=== PATIENT | female | born 1980 | race Caucasian/White ===

== ENCOUNTER 2017-05-10 09:07 | Emergency (ER) | payer OTHER ==
[~2017-05-10] VITALS: Ht 172.7 cm; Wt 97.1 kg
[~2017-05-10 09:07] MED LIST: LORA-741 PO; LSX20 PO; ONDA4TAB7 SL; POTA1CAP2 PO; ZOLP10TA PO
[2017-05-10 09:11] VITALS: TEMP 36.5; Ht 172.7 cm; Wt 97.1 kg
[2017-05-10] MEDS ORDERED: HYDROmorphone INJ 1 MG/ML SYR IV STA (09:52)
[2017-05-10] MEDS ORDERED: SODIUM CHLORIDE 0.9% 1000ML 1,000 ML IV STA (09:52)
[2017-05-10] MEDS ORDERED: ONDANSETRON INJ 2 MG/ML 2 ML VIAL IV STA ×2 (09:52→11:20)
[2017-05-10] MEDS ORDERED: OPTIRAY 320 IV PRN (10:00)
[2017-05-10 10:03] LABS: BASO % 0.3 %; BASO ABS # 0.02 K/uL (0-0.2); EOS % 1.2 %; EOS ABS # 0.09 K/uL (0-0.5); HEMATOCRIT 41.5 % (37-47); HEMOGLOBIN 14.7 g/dL (12.0-16.0); IG# 0.02 K/uL (0.00-0.02); LYMPH % 34.8 %; LYMPH ABS # 2.59 K/uL (1.2-3.4); MEAN CORPUSCULAR HEMOGLOBIN 32.6 pg (25-34); MEAN CORPUSCULAR HGB CONC 35.4 g/dl (32-36); MEAN PLATELET VOLUME 9.3 fL (7.4-10.4); MONO % 4.3 %; MONO ABS # 0.32 K/uL (0.11-0.59); NEUT % 59.1 %; PLATELET COUNT 301 K/uL (130-400); RED CELL DISTRIBUTION WIDTH CV 12.8 % (11.5-14.5); RED CELL DISTRIBUTION WIDTH SD 42.9 fL (36.4-46.3); WHITE BLOOD COUNT 7.44 K/uL (4.8-10.8)
--- NOTE | 2017-05-10 10:18 | DIAGNOSTIC IMAGING REPORT ---
CHEST ONE VIEW PORTABLE CLINICAL HISTORY: Pain, radiating to the abdomen. COMPARISON STUDY: 05/06/2015 FINDINGS: The cardiac and mediastinal contours are normal. There is no evidence of focal pulmonary consolidation. There is no evidence of failure. No pleural effusions are visualized.[ There is no free intraperitoneal air. IMPRESSION: No active disease in the chest. Electronically signed by: Lg Corrales M.D. 05/10/2017 10:17 AM Dictated Date/Time: 05/10/2017 10:15 AM
[2017-05-10 10:34] LABS: ALBUMIN 4.1 gm/dl (3.4-5.0); CREATININE 0.87 mg/dl (0.60-1.20); POTASSIUM 3.5 mmol/L (3.5-5.1); TOTAL PROTEIN 8.2 gm/dl (6.4-8.2)
[2017-05-10] MEDS ORDERED: KETOROLAC TROMETHAMINE 30 MG/ML VIAL ONE (11:19)
[2017-05-10] MEDS ORDERED: KETOROLAC TROMETHAMINE 30 MG/ML VIAL IV STA (11:20)
[2017-05-10] MEDS ORDERED: HYDROCODONE/ACETAMI 10/325 TAB PO STA (11:20)
[2017-05-10 11:24] LABS: CALCIUM 9.6 mg/dl (8.5-10.1)
--- NOTE | 2017-05-10 11:24 | DIAGNOSTIC IMAGING REPORT ---
CT ABD/PELVIS IV CONTRAST ONLY CLINICAL HISTORY: Diffuse severe abdominal pain, TTP, L CVATTP, h/o kidney stones, prior appy COMPARISON STUDY: August 20, 2014 TECHNIQUE: Following the IV administration of 94 mL of Optiray-320, CT scan of the abdomen and pelvis was performed from the lung bases to the proximal femurs. Images are reviewed in the axial, sagittal, and coronal planes. IV contrast was administered without complication. A dose lowering technique was utilized adhering to the principles of ALARA. CT DOSE: 992.94 mGy.cm FINDINGS: Lower chest: The heart is normal in size and configuration, without pericardial effusion. The lung bases and pleural spaces are clear. Liver: The contrast-enhanced liver is normal in size, contour, and attenuation. There is no intrahepatic biliary ductal dilatation. The hepatic veins and portal veins are patent. Gallbladder: Unremarkable. Spleen: Normal in size and attenuation. Pancreas: Unremarkable. Adrenal glands: Unremarkable. Kidneys: There is a 2.5 mm obstructing left ureteral calculus at the level of the ureterovesical junction. There is secondary hydroureteronephrosis. No solid renal masses are visualized. There is a 3 mm lower pole right renal calculus. Bowel: There are no transition zone to indicate bowel obstruction. By history the appendix is surgically absent. There is no acute diverticulitis. Peritoneum: There is no intraperitoneal free air or abdominal ascites. Vasculature: The abdominal aorta is normal in course and caliber. Adenopathy: None. Pelvic viscera: The bladder, and pelvic viscera are unremarkable. Skeletal structures: No destructive osseous lesions are seen. IMPRESSION: 1. 2.5 mm left UVJ calculus with secondary obstructive changes 2. Nonobstructing lower pole right renal calculus 3. No evidence of bowel obstruction. No evidence of free air Electronically signed by: Lg Corrales M.D. 05/10/2017 11:23 AM Dictated Date/Time: 05/10/2017 11:18 AM
[2017-05-10] MEDS ORDERED: ONDA4TAB46 PO (11:44)
[2017-05-10] MEDS ORDERED: TAMS0.4C38 PO (11:44)
[2017-05-10] MEDS ORDERED: OXYC1TAB3 PO (11:44)
--- NOTE | 2017-05-10 11:45 | EMERGENCY ROOM VISIT NOTE ---
History Report prepared by Della: Ezequiel Negron Under the Supervision of: Dr. Alton Pettit M.D. First contact with patient: 09:37 Chief Complaint: KIDNEY STONE Stated Complaint: POSS KIDNEY STONE,VOMITING History of Present Illness The patient is a 37 year old white female with a past medical history of Kidney stone, GERD s/p Jayde Fundoplication, PCOS, s/p tonsillectomy, appendectomy s/ p appendix rupture, PE who presents to the ED with a cc of constant left flank pain beginning one hour ago. Positive vomiting. Patient reports pain feels similar to kidney stone, except previous kidney stone pain was intermittent. Describes pain as "sharp". Negative abdominal pain. No recent travel or antibiotic use. Patient reports experiencing "bladder spasms" the day following sexual intercourse. LNMP was three weeks ago Source of History: patient Onset: One hour ago Position: other (left flank) Quality: sharp Timing: constant Associated Symptoms: + vomiting, No abdominal pain Review of Systems See HPI for pertinent positives and negatives. A total of ten systems were reviewed and were otherwise negative. Past Medical & Surgical Medical Problems: (1) Colposcopy (2) GERD (gastroesophageal reflux disease) (3) Kidney stone (4) PERSONAL HISTORY OF CERVICAL DYSPLASIA (5) polycystic ovary syndrome (6) Pulmonary embolism Surgical Problems: (1) History of Jayde fundoplication (2) History of tonsillectomy Family History Cancer Diabetes mellitus FH: heart disease FHx: gallbladder disease FHx: lung disease Hypertension Kidney disease Kidney stones Social History Smoking Status: Former Smoker Alcohol Use: none Drug Use: none Marital Status: in relationship Housing Status: lives with family Occupation Status: employed Current/Historical Medications Scheduled Tamsulosin Hcl (Flomax), 0.4 MG PO DAILY Scheduled PRN Lorazepam (Ativan), 0.5 MG PO Q8H PRN for Anxiety/Agitation Ondansetron Hcl (Zofran), 4 MG PO Q8H PRN for Nausea Oxycodone Immediate Rel Tab (Roxicodone Ir), 5 MG PO Q6H PRN for Pain Zolpidem Tartrate (Ambien), 10 MG PO HS PRN for Sleep Allergies Coded Allergies: Fentanyl (Unverified Allergy, Severe, MAKES HER FEEL ILL, 05/10/17) Morphine (Unverified Allergy, Severe, MAKES HER FEEL ILL, 05/10/17) PT STATED DO NOT USE MORPHINE OR FENTANYL ON HER, USE ALTERNATIVE MEDS Povidone (Verified Allergy, Intermediate, SWELLING,RASH, 05/10/17) Povidone Iodine (Unverified Allergy, Intermediate, SWELLING, RASH, 05/10/17 ) IN AN OPEN SKIN/WOUND Clarithromycin (Verified Adverse Reaction, Mild, VOMITING, 05/10/17) Sulfa Drugs (Verified Adverse Reaction, Mild, VOMITING, 05/10/17) Sulfamethoxazole (Verified Adverse Reaction, Mild, VOMITING, 05/10/17) Trimethoprim (Verified Adverse Reaction, Mild, VOMITING, 05/10/17) Physical Exam Vital Signs Date Time Temp Pulse Resp B/P (MAP) Pulse Ox O2 Delivery O2 Flow Rate FiO2 05/10/17 11:54 70 16 98/66 98 Room Air 05/10/17 10:52 53 20 111/66 100 Room Air 05/10/17 09:11 36.5 76 20 153/86 100 Room Air Physical Exam GENERAL: Awake, alert, well-appearing, in moderate distress. Appears to be in pain. HENT: Normocephalic, atraumatic. EYES: Normal conjunctiva. Sclera non-icteric. NECK: Supple. No nuchal rigidity. FROM. RESPIRATORY: CTAB, no rhonchi, wheezing, crackles CARDIAC: RRR, no MRG ABDOMEN: Soft, BS+. Diffuse abdominal TTP. Left sided CVA TTP. MSK: No chest wall TTP, no LE edema NEURO: GCS 15, CN 2-12 intact, moves all 4s on command SKIN: No rash or jaundice noted. Medical Decision & Procedures ER Provider Diagnostic Interpretation: Radiology results as stated below per my review and radiologist interpretation: CT ABD/PELVIS IV CONTRAST ONLY FINDINGS: Lower chest: The heart is normal in size and configuration, without pericardial effusion. The lung bases and pleural spaces are clear. Liver: The contrast-enhanced liver is normal in size, contour, and attenuation. There is no intrahepatic biliary ductal dilatation. The hepatic veins and portal veins are patent. Gallbladder: Unremarkable. Spleen: Normal in size and attenuation. Pancreas: Unremarkable. Adrenal glands: Unremarkable. Kidneys: There is a 2.5 mm obstructing left ureteral calculus at the level of the ureterovesical junction. There is secondary hydroureteronephrosis. No solid renal masses are visualized. There is a 3 mm lower pole right renal calculus. Bowel: There are no transition zone to indicate bowel obstruction. By history the appendix is surgically absent. There is no acute diverticulitis. Peritoneum: There is no intraperitoneal free air or abdominal ascites. Vasculature: The abdominal aorta is normal in course and caliber. Adenopathy: None. Pelvic viscera: The bladder, and pelvic viscera are unremarkable. Skeletal structures: No destructive osseous lesions are seen. IMPRESSION: 1. 2.5 mm left UVJ calculus with secondary obstructive changes 2. Nonobstructing lower pole right renal calculus 3. No evidence of bowel obstruction. No evidence of free air Electronically signed by: Lg Corrales M.D. 05/10/2017 11:23 AM CHEST ONE VIEW PORTABLE FINDINGS: The cardiac and mediastinal contours are normal. There is no evidence of focal pulmonary consolidation. There is no evidence of failure. No pleural effusions are visualized.[ There is no free intraperitoneal air. IMPRESSION: No active disease in the chest. Electronically signed by: Lg Corrales M.D. 05/10/2017 10:17 AM Laboratory Results 05/10/17 09:25 Red Blood Count 4.51, Mean Corpuscular Volume 92.0, Mean Corpuscular Hemoglobin 32.6, Mean Corpuscular Hemoglobin Concent 35.4, Mean Platelet Volume 9.3, Neutrophils (%) (Auto) 59.1, Lymphocytes (%) (Auto) 34.8, Monocytes (%) (Auto) 4.3, Eosinophils (%) (Auto) 1.2, Basophils (%) (Auto) 0.3, Neutrophils # (Auto) 4.40, Lymphocytes # (Auto) 2.59, Monocytes # (Auto) 0.32, Eosinophils # (Auto) 0.09, Basophils # (Auto) 0.02 05/10/17 09:25 Test 05/10/17 09:25 05/10/17 11:00 White Blood Count 7.44 K/uL (4.8-10.8) Red Blood Count 4.51 M/uL (4.2-5.4) Hemoglobin 14.7 g/dL (12.0-16.0) Hematocrit 41.5 % (37-47) Mean Corpuscular Volume 92.0 fL (80-100) Mean Corpuscular Hemoglobin 32.6 pg (25-34) Mean Corpuscular Hemoglobin Concent 35.4 g/dl (32-36) Platelet Count 301 K/uL (130-400) Mean Platelet Volume 9.3 fL (7.4-10.4) Neutrophils (%) (Auto) 59.1 % Lymphocytes (%) (Auto) 34.8 % Monocytes (%) (Auto) 4.3 % Eosinophils (%) (Auto) 1.2 % Basophils (%) (Auto) 0.3 % Neutrophils # (Auto) 4.40 K/uL (1.4-6.5) Lymphocytes # (Auto) 2.59 K/uL (1.2-3.4) Monocytes # (Auto) 0.32 K/uL (0.11-0.59) Eosinophils # (Auto) 0.09 K/uL (0-0.5) Basophils # (Auto) 0.02 K/uL (0-0.2) RDW Standard Deviation 42.9 fL (36.4-46.3) RDW Coefficient of Variation 12.8 % (11.5-14.5) Immature Granulocyte % (Auto) 0.3 % Immature Granulocyte # (Auto) 0.02 K/uL (0.00-0.02) Anion Gap 7.0 mmol/L (3-11) Est Creatinine Clear Calc Drug Dose 110.0 ml/min Estimated GFR () 100.0 Estimated GFR (Non- 86.3 BUN/Creatinine Ratio 16.2 (10-20) Calcium Level 9.6 mg/dl (8.5-10.1) Total Bilirubin 1.3 mg/dl (0.2-1) Direct Bilirubin 0.2 mg/dl (0-0.2) Aspartate Amino Transf (AST/SGOT) 10 U/L (15-37) Alanine Aminotransferase (ALT/SGPT) 13 U/L (12-78) Alkaline Phosphatase 64 U/L (45-117) Total Protein 8.2 gm/dl (6.4-8.2) Albumin 4.1 gm/dl (3.4-5.0) Lipase 119 U/L (73-393) Urine Color DK YELLOW Urine Appearance CLOUDY (CLEAR) Urine pH 5.0 (4.5-7.5) Urine Specific [place] 1.026 (1.000-1.030) Urine Protein NEG (NEG) Urine Glucose (UA) NEG (NEG) Urine Ketones TRACE (NEG) Urine Occult Blood 3+ (NEG) Urine Nitrite NEG (NEG) Urine Bilirubin NEG (NEG) Urine Urobilinogen NEG (NEG) Urine Leukocyte Esterase NEG (NEG) Urine WBC (Auto) 1-5 /hpf (0-5) Urine RBC (Auto) 10-30 /hpf (0-4) Urine Hyaline Casts (Auto) 1-5 /lpf (0-5) Urine Epithelial Cells (Auto) >30 /lpf (0-5) Urine Bacteria (Auto) 2+ (NEG) Urine Crystals CALCIUM OXALATE (NONE Urine Pathogenic Casts /lpf (0) Laboratory results reviewed by me Medications Administered Medications (Trade) Dose Ordered Sig/Birgit Route Start Time Stop Time Status Last Admin Dose Admin Sodium Chloride 1,000 ml @ 999 mls/hr Q1H1M STAT IV 05/10/17 09:52 05/10/17 10:52 DC 05/10/17 09:52 999 MLS/HR Hydromorphone HCl (Dilaudid Inj) 1 mg NOW STAT IV 05/10/17 09:52 05/10/17 09:55 DC 05/10/17 10:02 1 MG Ondansetron HCl (Zofran Inj) 4 mg NOW STAT IV 05/10/17 09:52 05/10/17 09:55 DC 05/10/17 10:03 4 MG Ketorolac Tromethamine (Toradol Inj) 30 mg STK-MED ONCE .ROUTE 05/10/17 11:19 05/10/17 11:20 DC 05/10/17 11:24 30 MG Acetaminophen/ Hydrocodone Bitart (Simpson 10/325 Tab) 1 tab ONE STAT PO 05/10/17 11:20 05/10/17 11:22 DC 05/10/17 11:54 1 TAB Ondansetron HCl (Zofran Inj) 4 mg NOW STAT IV 05/10/17 11:20 05/10/17 11:22 DC 05/10/17 11:23 4 MG ED Course 0948: The patient was evaluated in room B3. A complete history and physical exam was performed. 1149: I reevaluated the patient. Discussed results and discharge instructions: she verbalized understanding and agreement. The patient is ready for discharge. Medical Decision Differential diagnosis: Etiologies such as renal colic, appendicitis, diverticulitis, mesenteric ischemia, aortic pathology, infections, inflammatory bowel disease, PUD, biliary pathology, UTI, as well as others were entertained. Prior records were reviewed. Patient does have a prior history of kidney stones. Patient was seen and evaluated the bedside. Patient did describe some persistent left-sided flank pain with associated abdominal discomfort. Patient has had nausea and vomiting. Patient tried taking some [id number] medications without much relief. On exam the patient does have significant abdominal TTP as well as some left-sided CVA TTP. Patient did have blood work completed, urinalysis, urine test, CT of the abdomen pelvis. Patient does not have an elevated white count. Patient's kidney function is normal. Patient does have blood in the urine. Patient did have CT which shows that the patient does have a 2.5 mm obstructing UVJ stone. Given the size believe that it will pass. Especially in light of the patient's normal kidney function. The patient was told of the findings. Patient was given additional pain medication medication for home. Patient was told to follow-up with urology as needed. Patient was given strict follow-up, discharge , and return precautions. All questions were answered. Patient was deemed suitable for outpatient follow-up at this time. Patient agreed with the plan of care and was safely discharged home. Medication Reconcilliation Current Medication List: was personally reviewed by me Blood Pressure Screening Patient's blood pressure: Normal blood pressure Blood pressure disposition: Did not require urgent referral Impression Primary Impression: Ureterovesical junction (UVJ) obstruction Additional Impressions: Ureterolithiasis Flank pain Scribe Attestation The scribe's documentation has been prepared under my direction and personally reviewed by me in its entirety. I confirm that the note above accurately reflects all work, treatment, procedures, and medical decision making performed by me. Departure Information Dispostion Home / Self-Care Prescriptions Phenazopyridine HCl (Pyridium) 200 Mg Tab 200 MG PO TID Y for Frequency/Burning w/Urination, #6 TAB Prov: Alton Pettit M.D. 05/10/17 Ondansetron Hcl (ZOFRAN) 4 Mg Tab 4 MG PO Q8H Y for Nausea, #15 TAB Prov: Alton Pettit M.D. 05/10/17 Oxycodone Immediate Rel Tab (ROXICODONE IR) 5 Mg Tab 5 MG PO Q6H Y for Pain for 5 Days, #20 TAB Prov: Alton Pettit M.D. 05/10/17 Tamsulosin Hcl (FLOMAX) 0.4 Mg Cap 0.4 MG PO DAILY for 10 Days, #10 CAP Prov: Alton Pettit M.D. 05/10/17 Referrals No Doctor, Assigned (PCP) Ebenezer Silva M.D. Patient Instructions Kidney Stones - [facility], [facility]ney St[facility] Additional Instructions Please return to the emergency department if you have worsening or recurrent symptoms not amenable to at-home treatment. Please call for a follow-up appointment with her primary care physician. Please take your medications as prescribed. If you have other concerns and/or complaints please feel free to also call your primary care physician's office or return the ED for further evaluation, management, and treatment. You were found to have an elevated blood pressure today (>120 sytolic or >90 diastolic). Per medicare guidelines, you need to follow up with this blood pressure screening with your Primary Care Physician (PCP). For a new PCP call [phone]. You received narcotic or benzodiazepene medication while in the emergency room today. This is an addictive medication that may cause drowziness as well as constipation. Do not drive, operate heavy machinery, or drink alcohol under the influence of this medication. You may take 600 mg Ibuprofen every 6 hours as needed for pain with food for no more than 2 consecutive days. You may take tylenol 1000 mg every 6 hours as needed for pain. You may take motrin and tylenol separately or at the same time. Use your narcotic medication with caution. It is habit forming and addictive. Please use only as prescribed. Please follow up with a urologist as needed if you have persistent pain and/or blood in your urine. Return to the ER if you cannot take you medications. Take your medications as prescribed. If taking an antibiotic consider taking a probiotic and/or eating yogurt, but at the least, please take with food as it can cause upset stomach. If culture results are not available at discharge, if they are positive for concern of infection, you will be informed of the results as soon as they are available. If you were seen between 11pm and 7AM all radiology reads will be re-read by our in house staff. If any major discrepancies are discovered, you will be notified. You have been examined and treated today on an emergency basis only. This is not a substitute for, or an effort to provide, complete comprehensive medical care. It is impossible to recognize and treat all injuries or illnesses in a single emergency department visit. It is therefore important that you follow up closely with [facility], your PCP, and/or your specialist(s). Call as soon as possible for an appointment. Thank you for your time and consideration. I look forward to speaking with you again soon. Please don't hesitate to call us if you have any questions. Problem Qualifiers
[2017-05-10 11:54] VITALS: BP 98/66; PULSE 70; O2SAT 98
[2017-05-10] MEDS ORDERED: PHEN-876 PO (12:03)
== END 2017-05-10 12:10 | disposition home or self-care (01) ==
LOC: C.EDB 09:10
DX: N20.1 Calculus of ureter (principal); R10.9 Unspecified abdominal pain; K21.9 Gastro-esophageal reflux disease without esophagitis; Z86.711 Personal history of pulmonary embolism; Z87.891 Personal history of nicotine dependence; Z79.899 Other long term (current) drug therapy; E28.2 Polycystic ovarian syndrome